=== PATIENT | male | born 1970 | race Caucasian/White ===

== ENCOUNTER 2022-02-12 23:50 | Observation (INO) ==
[~2022-02-12 23:50] MED LIST: Heparin DRIP 25,000 UNITS BAG 25,000 UNITS/500 ML BAG IV SCH
[2022-02-13] MEDS ORDERED: Heparin DRIP 25,000 UNITS BAG 25,000 UNITS/500 ML BAG ONE
[2022-02-13 00:47] LABS: eGFR CKD-EPI 48.9 (>60)
[2022-02-13] MEDS ORDERED: Heparin 5000 UNITS/ML 1 mL VIAL IV SCH (01:00)
[2022-02-13 01:11] LABS: Hematocrit 31 % (42-52); Hemoglobin 10.4 g/dL (14.0-18.0); Mean Corpuscular HGB Conc 34 g/dL (31-36); Mean Corpuscular Hemoglobin 31 pg (27-31); Mean Corpuscular Volume 90 fL (80-94); Platelet Count 177 10^3/uL (150-450); Red Blood Count 3.42 10^6 /uL (4.18-5.48); Red Cell Distribution Width 13 % (10-15); White Blood Count 4.9 10^3/uL (3.5-10.8)
[2022-02-13 01:38] LABS: ABS Lymphocytes 0.8 10^3/ul (1.0-4.8); ABS Monocytes 1.2 10^3/ul (0-0.8); ABS Neutrophils 2.8 10^3/ul (1.5-7.7); Eosinophil % 0.4 %; Lymphocyte % 17.3 %
[2022-02-13] MEDS ORDERED: D5NS 0.9% 1000 ml BAG 1,000 ML IV SCH (02:00)
[2022-02-13 02:43] LABS: HDL Cholesterol 31.4 mg/dL
[2022-02-13] MEDS ORDERED: Albuterol HFA INHALER 8 gm MDI INH PRN (02:44)
[2022-02-13] MEDS ORDERED: Dextrose 50% Syringe 50 ml 25 GM/50 ML SYRINGE IV PUSH PRN ×2 (02:47→22:16)
[2022-02-13 03:21] LABS: Albumin 3.2 g/dL (3.2-5.2); Albumin/Globulin Ratio 1.1 (1-3); Calcium 8.5 mg/dL (8.6-10.3); Globulin 2.9 g/dL (2-4); Potassium 3.6 mmol/L (3.5-5.0); Total Bilirubin 0.3 mg/dL (0.2-1.0); Total Protein 6.1 g/dL (6.4-8.9); eGFR CKD-EPI 50.3 (>60)
[2022-02-13 04:19] LABS: ABS Lymphocytes 1.1 10^3/ul (1.0-4.8); ABS Monocytes 1.1 10^3/ul (0-0.8); ABS Neutrophils 2.4 10^3/ul (1.5-7.7); Eosinophil % 0.4 %; Hematocrit 33 % (42-52); Hemoglobin 10.8 g/dL (14.0-18.0); Lymphocyte % 23.2 %; Mean Corpuscular HGB Conc 33 g/dL (31-36); Mean Corpuscular Hemoglobin 30 pg (27-31); Mean Corpuscular Volume 90 fL (80-94); Mean Platelet Volume 9.4 fL (7.4-10.4); Platelet Count 180 10^3/uL (150-450); Red Blood Count 3.62 10^6 /uL (4.18-5.48); Red Cell Distribution Width 13 % (10-15); White Blood Count 4.6 10^3/uL (3.5-10.8)
[2022-02-13 04:54] LABS: High Sensitivity Troponin 1 Hr 73 pg/mL (<20)
[2022-02-13] MEDS: Mometasone/Formoter 200/5 MDI INH SCH ×2 (07:41→21:51)
[2022-02-13] MEDS ORDERED: Sulfur Hexaflouride MICROSPHR 25 MG VIAL ONE (10:41)
[2022-02-13 10:44] LABS: Magnesium 1.6 mg/dL (1.9-2.7)
[2022-02-13 11:04] LABS: Ferritin 137.2 ng/mL (24-336)
[2022-02-13] MEDS ORDERED: Magnesium Sulfate IV 3 GM in NS 0.9% 100 ml BAG 100 ML IVPB ONE (11:15)
[2022-02-13] MEDS: Aspirin EC 81 mg TAB.EC (enteric coated) PO SCH (13:02)
[2022-02-13 16:21] LABS: Folate 18.68 ng/mL (5.90-24.80)
[2022-02-13] MEDS ORDERED: Iodixanol (CONTRAST) 320 MG/ML 100 ML SDV IV ONE (18:11)
[2022-02-14 06:14] LABS: ABS Basophils 0.1 10^3/ul (0-0.2); ABS Eosinophils 0.1 10^3/ul (0-0.6); ABS Lymphocytes 1.7 10^3/ul (1.0-4.8); ABS Neutrophils 2.4 10^3/ul (1.5-7.7); Hematocrit 33 % (42-52); Hemoglobin 11.1 g/dL (14.0-18.0); Lymphocyte % 31.5 %; Mean Corpuscular HGB Conc 33 g/dL (31-36); Mean Corpuscular Hemoglobin 30 pg (27-31); Mean Corpuscular Volume 90 fL (80-94); Mean Platelet Volume 9.6 fL (7.4-10.4); Nucleated Red Blood Cells % 0.2; Platelet Count 174 10^3/uL (150-450); Red Cell Distribution Width 13 % (10-15); White Blood Count 5.2 10^3/uL (3.5-10.8)
[2022-02-14 06:43] LABS: Potassium 3.9 mmol/L (3.5-5.0); eGFR CKD-EPI 47.2 (>60)
[2022-02-14] MEDS: Mometasone/Formoter 200/5 MDI INH SCH ×2 (07:30→18:01)
[2022-02-14] MEDS: Aspirin EC 81 mg TAB.EC (enteric coated) PO SCH (11:47)
[2022-02-14] MEDS ORDERED: Cyanocobalamin INJ 1,000 MCG/ML VIAL 1 ML VIAL IM ONE (16:04)
[2022-02-15 05:40] LABS: ABS Eosinophils 0.1 10^3/ul (0-0.6); ABS Lymphocytes 1.7 10^3/ul (1.0-4.8); ABS Monocytes 0.6 10^3/ul (0-0.8); ABS Neutrophils 1.1 10^3/ul (1.5-7.7); Eosinophil % 2.7 %; Hematocrit 31 % (42-52); Hemoglobin 10.1 g/dL (14.0-18.0); Lymphocyte % 47.9 %; Mean Corpuscular HGB Conc 33 g/dL (31-36); Mean Corpuscular Hemoglobin 30 pg (27-31); Mean Corpuscular Volume 91 fL (80-94); Mean Platelet Volume 9.9 fL (7.4-10.4); Platelet Count 169 10^3/uL (150-450); Red Blood Count 3.42 10^6 /uL (4.18-5.48); Red Cell Distribution Width 13 % (10-15); White Blood Count 3.5 10^3/uL (3.5-10.8)
[2022-02-15 06:08] LABS: Calcium 7.9 mg/dL (8.6-10.3); Potassium 4.3 mmol/L (3.5-5.0); eGFR CKD-EPI 42.2 (>60)
[2022-02-15] MEDS: Mometasone/Formoter 200/5 MDI INH SCH ×2 (07:21→20:44)
[2022-02-15] MEDS ORDERED: Lactated Ringers 500 ml BAG 500 ML IV SCH (08:00)
[2022-02-15] MEDS: Aspirin EC 81 mg TAB.EC (enteric coated) PO SCH (08:45)
[2022-02-15 13:00] LABS: Calcium 7.7 mg/dL (8.6-10.3); Potassium 4.3 mmol/L (3.5-5.0)
[2022-02-15] MEDS ORDERED: Dextrose 50% Syringe 50 ml 25 GM/50 ML SYRINGE IV PUSH PRN (14:03)
[2022-02-15] MEDS ORDERED: Insulin GLARGINE 100 un/ml 10 ml VIAL SUBCUT SCH ×2 (17:00→21:00)
[2022-02-16] MEDS: Mometasone/Formoter 200/5 MDI INH SCH ×2 (07:10→19:48)
[2022-02-16] MEDS: Aspirin EC 81 mg TAB.EC (enteric coated) PO SCH (10:52)
[2022-02-16] MEDS ORDERED: Insulin GLARGINE 100 un/ml 10 ml VIAL SUBCUT SCH (17:00)
[2022-02-17] MEDS: Mometasone/Formoter 200/5 MDI INH SCH (08:07)
[2022-02-17] MEDS: Aspirin EC 81 mg TAB.EC (enteric coated) PO SCH (08:45)
[2022-02-17] MEDS ORDERED: Influenza vaccine *QUAD* *2022-23* 0.5 ML SYRINGE IM ONE (09:00)
[2022-02-17] MEDS ORDERED: Psyllium PAK PO SCH (12:00)
[2022-02-17 12:42] VITALS: BP 157/84
[2022-02-17] MEDS ORDERED: Insulin GLARGINE 100 un/ml 10 ml VIAL SUBCUT SCH ×2 (21:00)
== END 2022-02-17 15:45 | disposition home or self-care (01) ==
LOC: EDHOLD 23:50 → ED 23:50 → SUATTDRO 02-13 00:13 → OBSVTOIN 02-13 01:12 → INTOOBSV 02-13 01:12 → MEDTELE 02-13 03:34
PROVIDERS: ADMIT Internal Medicine; ATTEND Internal Medicine